=== PATIENT | male | born 2000 | race Hispanic/Latino ===

== ENCOUNTER 2020-12-03 07:57 | Emergency (ER) | payer OTHER ==
[2020-12-03] MEDS ORDERED: LIDOCAINE 1% W/EPI 1:100,000 MDV 50 ML VIAL ONE (08:37)
--- NOTE | 2020-12-03 08:50 | ER ---
Nurse's Notes [facility] Name: Jack Cano Jr Age: 20 yrs Sex: Male : 2000 Arrival Date: 12/03/2020 Time: 08:06 Bed 13 Private MD: Diagnosis: Foot Laceration/ Open wound of foot-left Presentation: 12/03 08:07 Chief complaint: Patient states: jumped down from top bunk and cut bottom of his left iw foot, bleeding controlled, occurred at 0400 this morning. Coronavirus screen: At this time, the client does not indicate any symptoms associated with coronavirus-19. Ebola Screen: Patient negative for fever greater than or equal to 101.5 degrees Fahrenheit, and additional compatible Ebola Virus Disease symptoms Patient denies exposure to infectious person. Patient denies travel to an Ebola-affected area in the 21 days before illness onset. No symptoms or risks identified at this time. Complicating Factors: There are no complicating factors for this patient. Initial Sepsis Screen: Does the patient meet any 2 criteria? No. Patient's initial sepsis screen is negative. Does the patient have a suspected source of infection? No. Patient's initial sepsis screen is negative. Risk Assessment: Do you want to hurt yourself or someone else? Patient reports no desire to harm self or others. 08:07 Method Of Arrival: Law Enforcement: [place] [employer] iw 08:07 Acuity: DUANE 4 iw 08:20 Onset of symptoms was December 03, 2020. Triage Assessment: 08:20 General: Appears distressed, uncomfortable, Behavior is cooperative, appropriate for bp age, anxious. Pain: Complains of pain in ball of left foot. EENT: No deficits noted. Neuro: No deficits noted. Cardiovascular: No deficits noted. Respiratory: No deficits noted. GI: No signs and/or symptoms were reported involving the gastrointestinal system. : No signs and/or symptoms were reported regarding the genitourinary system. Derm: No deficits noted. Musculoskeletal: No deficits noted. Injury Description: Laceration sustained to ball of left foot is 7.6 to 20 cm long, was sustained 1-2 hours ago. Historical: - Allergies: 08:09 No Known Allergies; iw - Home Meds: 08:09 None [Active]; iw - PMHx: 08:09 None; iw - Immunization history:: Adult Immunizations unknown. - Social history:: Patient/guardian denies using alcohol, street drugs, The patient lives with family. - Family history:: not pertinent. Screenin:19 Abuse screen: Denies threats or abuse. Denies injuries from another. Nutritional iw screening: No deficits noted. Tuberculosis screening: No symptoms or risk factors identified. Fall Risk None identified. Assessment: 08:18 General: Appears in no apparent distress. Behavior is calm, cooperative. Pain: iw Complains of pain in left foot. Neuro: Level of Consciousness is awake, alert, obeys commands, Oriented to person, place, time, situation. Derm: Skin is healthy with good turgor. Musculoskeletal: Capillary refill < 3 seconds, in bilateral toes. Range of motion: intact in all extremities. Injury Description: Laceration sustained to plantar aspect of left first toe and ball of left foot is jagged, 2.6 to 7.5 cm long, not bleeding, was sustained 4-6 hours ago. is bleeding no active bleeding noted. Vital Signs: 08:07 BP 144 / 97; Pulse 75; Resp 16; Temp 98.3; Pulse Ox 100% on R/A; Weight 81.65 kg; iw Height 6 ft. 0 in. (182.88 cm); 08:07 Body Mass Index 24.41 (81.65 kg, 182.88 cm) iw ED Course: 08:06 Patient arrived in ED. iw 08:06 Vanessa Brunner, RN is Primary Nurse. iw 08:06 Puala Brumfield FNP-C is PHCP. kb 08:06 Marianela Frias MD is Attending Physician. kb 08:09 Triage completed. iw 08:10 Arm band placed on. iw 09:06 Assist provider with laceration repair on ball of left foot and plantar aspect of left iw first toe that was between 2.6 to 7.5 cm using jaymie. 09:13 Patient did not have IV access during this emergency room visit. Wound care: to bp laceration located on ball of left foot was dressed with 4X4s, Patient tolerated well. 09:15 Patient has correct armband on for positive identification. Bed in low position. Call bp light in reach. Side rails up X2. Adult w/ patient. Administered Medications: No medications were administered Outcome: 08:49 Discharge ordered by MD. li 09:15 Discharged to Law Enforcement bp 09:15 Condition: stable 09:15 Discharge instructions given to patient, police, Instructed on discharge instructions, follow up and referral plans. medication usage, wound care, Demonstrated understanding of instructions, follow-up care, medications, wound care, Prescriptions given X 2. 09:16 Patient left the ED. bp Signatures: Paula Brumfield, OSCAR-Jie MOORE-Vanessa Ambriz RN Luis Turner RN RN bp Alzahri, Mohammad, MD MD ma2 Corrections: (The following items were deleted from the chart) 08:09 08:09 PSHx: None; iw iw 08:20 08:07 Resp 16bpm; Pulse Ox 100% RA; Temp 98.3F; 81.65 kg; Height 6 ft. 0 in.; BMI: iw 24.4; iw
--- NOTE | 2020-12-03 08:50 | EDPHYS ---
Physician Documentation [facility] Name: Jack Cano Jr Age: 20 yrs Sex: Male : 2000 Arrival Date: 12/03/2020 Time: 08:06 Bed 13 Private MD: ED Physician Marianela Frias HPI: 12/03 08:44 This 20 yrs old Male presents to ER via Law Enforcement with complaints of ma2 Laceration To Foot. 08:44 The patient has a laceration occurred. The laceration(s) is(are) located on the left ma2 foot. Onset: The symptoms/episode began/occurred suddenly, 1 hour(s) ago. Associated signs and symptoms: Pertinent negatives: loss of consciousness. The patient has not experienced similar symptoms in the past. Patient sustained left small flap laceration when he jumped off his bed and had a metal edge, . Historical: - Allergies: 08:09 No Known Allergies; iw - Home Meds: 08:09 None [Active]; iw - PMHx: 08:09 None; iw - Immunization history:: Adult Immunizations unknown. - Social history:: Patient/guardian denies using alcohol, street drugs, The patient lives with family. - Family history:: not pertinent. ROS: 08:44 Constitutional: Negative for fever, chills, and weight loss. ma2 08:44 All other systems are negative. Exam: 08:44 Constitutional: This is a well developed, well nourished patient who is awake, alert, ma2 and in no acute distress. Head/Face: Normocephalic, atraumatic. Eyes: Pupils equal round and reactive to light, extra-ocular motions intact. Lids and lashes normal. Conjunctiva and sclera are non-icteric and not injected. Cornea within normal limits. Periorbital areas with no swelling, redness, or edema. ENT: Nares patent. No nasal discharge, no septal abnormalities noted. Tympanic membranes are normal and external auditory canals are clear. Oropharynx with no redness, swelling, or masses, exudates, or evidence of obstruction, uvula midline. Mucous membranes moist. Neck: Trachea midline, no thyromegaly or masses palpated, and no cervical lymphadenopathy. Supple, full range of motion without nuchal rigidity, or vertebral point tenderness. No Meningismus. Chest/axilla: Normal chest wall appearance and motion. Nontender with no deformity. No lesions are appreciated. Cardiovascular: Regular rate and rhythm with a normal S1 and S2. No gallops, murmurs, or rubs. Normal PMI, no JVD. No pulse deficits. Respiratory: Lungs have equal breath sounds bilaterally, clear to auscultation and percussion. No rales, rhonchi or wheezes noted. No increased work of breathing, no retractions or nasal flaring. Abdomen/GI: Soft, non-tender, with normal bowel sounds. No distension or tympany. No guarding or rebound. No evidence of tenderness throughout. Skin: Warm, dry with normal turgor. Normal color with no rashes, no lesions, and no evidence of cellulitis. MS/ Extremity: Flap laceration, irregular of the left sole measures 5 inches, the flap looks pink, with good cap refill. The pulses equal, no cyanosis. Neurovascular intact. Full, normal range of motion. Neuro: Awake and alert, GCS 15, oriented to person, place, time, and situation. Cranial nerves II-XII grossly intact. Motor strength 5/5 in all extremities. Sensory grossly intact. Cerebellar exam normal. Normal gait. Vital Signs: 08:07 BP 144 / 97; Pulse 75; Resp 16; Temp 98.3; Pulse Ox 100% on R/A; Weight 81.65 kg; iw Height 6 ft. 0 in. (182.88 cm); 08:07 Body Mass Index 24.41 (81.65 kg, 182.88 cm) iw Laceration: 08:44 Wound Repair of 5cm ( 2.0in ) subcutaneous laceration to left foot. Skin/tissue flap ma2 noted.. Distal neuro/vascular/tendon intact. Anesthesia: Local anesthetic administered with 8 mls of 1% lidocaine w/ Epi. Wound prep: Extensive cleansing. Skin closed with 14 1-0 [place] using simple sutures and sterile technique. Dressed with 4x4's. Patient tolerated well. MDM: 08:06 Patient medically screened. kb 08:44 Differential diagnosis: superficial laceration. ma2 08:44 Data reviewed: vital signs, nurses notes. Counseling: I had a detailed discussion with maJonny the patient and/or guardian regarding: the historical points, exam findings, and any diagnostic results supporting the discharge/admit diagnosis, the presence of at least one elevated blood pressure reading (>120/80) during this emergency department visit, the need for outpatient follow up. Response to treatment: the patient's symptoms have markedly improved after treatment. Administered Medications: No medications were administered Disposition Summary: 12/03/20 08:49 Discharge Ordered Location: Home ma2 Condition: Stable ma2 Diagnosis - Foot Laceration/ Open wound of foot - left ma2 Followup: ma2 - With: Private Physician - When: Tomorrow - Reason: Continuance of care Discharge Instructions: - Discharge Summary Sheet ma2 - Laceration Care, Adult, [id number] ma2 Forms: - Medication Reconciliation Form ma2 - Thank You Letter ma2 - Antibiotic Education ma2 - Prescription Opioid Use ma2 Prescriptions: - Clindamycin HCl 300 mg Oral Capsule - take 1 capsule by ORAL route every 6 hours for 10 days; 40 capsule; Refills: 0, ma2 Product Selection Permitted - Diclofenac Sodium 75 mg Oral Tablet Sustained Release - take 1 tablet by ORAL route 2 times per day; 30 tablet; Refills: 0, Product ma2 Selection Permitted Signatures: Paula Brumfield, OSCAR-C SCIENTIST-Vanessa Ambriz RN RN Marianela Frias MD MD or2 Corrections: (The following items were deleted from the chart) 08:09 08:09 PSHx: None; iw iw
[2020-12-03 09:21] VITALS: BP 144/97; TEMP 98.3; O2SAT 100
== END 2020-12-03 09:16 | disposition home or self-care (01) ==
LOC: ER 07:57
PROC: 0JQR0ZZ Repair Left Foot Subcutaneous Tissue and Fascia, Open Approach (ICD-10-PCS; principal; 2020-12-03)
DX: S91.312A Laceration without foreign body, left foot, initial encounter (principal); W22.8XXA Striking against or struck by other objects, initial encounter
CPT/HCPCS: 99283